=== PATIENT | female | born 1970 | race Caucasian/White ===

== ENCOUNTER → 2016-08-07 | Outpatient (CLI) | payer MEDICAID | LOC: FCPNEURO 20:00 | PROVIDERS: ATTEND Student in an Organized Health Care Education/Training Program | DX: G47.33 Obstructive sleep apnea (adult) (pediatric) (principal) ==

== ENCOUNTER → 2016-08-24 | Outpatient (CLI) | payer MEDICAID ==
--- NOTE | 2016-08-24 16:55 | MA ---
Screening Digital Mammogram, With Tomosynthesis and iCAD Indication: Routine screening. Technique: Standard digital CC projections were obtained. Digital breast tomosynthesis was performe d in the MLO projection, with reconstruction at 1.0-mm slice thickness. Composite MLO views were rec onstructed. This examination was processed by the iCAD computer-aided detection system. Comparison: August 2015, April 2014, and January 2013. Breast Density: Type B. Findings: CAD was reviewed. No suspicious microcalcifications, mass, or architectural distortion. Impression: Negative mammogram. BI-RADS: 1 - Negative. Recommendation: Routine screening is recommended in one year. [facility] will send a result letter to the patient. Negative mammography should not preclude additional workup of a clinically suspicious finding. The patient's information is entered into a reminder system with a target due date for her next mammo gram.
== END ==
LOC: FIMAGING 13:43
DX: Z12.31 Encounter for screening mammogram for malignant neoplasm of breast (principal)
CPT/HCPCS: G0202

== ENCOUNTER 2017-02-24 09:24 | Day surgery (SDC) | payer MEDICAID ==
[2017-02-24] MEDS ORDERED: LIDOCAINE 1% 2 ML INJ ONE (09:36)
[2017-02-24] MEDS ORDERED: LIDOCAINE 1% 2 ML INJ ID PRN (09:52)
[2017-02-24] MEDS ORDERED: NS 500 ML IV SCH (10:00)
[2017-02-24] MEDS ORDERED: MIDAZOLAM 2 MG/2 ML VIAL ONE (10:50)
[2017-02-24] MEDS ORDERED: fentaNYL 100 MCG/2 ML INJ ONE (10:51)
--- NOTE | 2017-02-24 10:57 | PDGENHP ---
History and Physical - Chief Complaint diarrhea, abdominal pain, family hx of colon cancer and polyps - History of Present Illness 46 year old with mild asthma and [place] with family hx of colon polyps (brother) and colon cancer (grandmother). Recent worsening of stools and development of diarrhea with mild pain and weight loss. History Information - Allergies/Home Medication List Allergies/Adverse Reactions: amoxicillin Allergy (Unverified 10/30/16 12:45) flouroquinine antibiotics Allergy (Uncoded 10/30/16 12:45) Home Medications: Herbals/Supplements -Info Only 02/17/17 [Last Taken 02/23/17] Singulair 02/17/17 [Last Taken 3 Days Ago] I have personally reviewed and updated: family history, medical history, social history, surgical history - Past Medical History asthma - Surgical History Reports: no pertinent surgical hx - Family History Positive for: cancer - Social History Smoking Status: Never smoked Alcohol Use: Rarely Drug Use: None Review of Systems ROS: 10pt was reviewed & negative except for what was stated in HPI & below Physical Exam Temp Pulse Resp BP Pulse Ox 36.9 C 66 18 122/74 H 98 02/24/17 09:55 02/24/17 09:55 02/24/17 09:55 02/24/17 09:55 02/24/17 09:55 Constitutional: no apparent distress, appears nourished Eyes: PERRL Ears, Nose, Mouth, Throat: moist mucous membranes Cardiovascular: regular rate and rhythym, no murmur, rub, or gallop, systolic murmur Respiratory: no respiratory distress Gastrointestinal: normoactive bowel sounds Skin: warm, normal color Neurologic: AAOx3 Psychiatric: interacting appropriately, not anxious Assessment & Plan Assessment: diarrhea and family hx of colon polyps/cancer Plan: colonoscopy
--- NOTE | 2017-02-24 11:58 | SUROPNOTE ---
[facility] Operative Report - Surgery COLONOSCOPY: Indication: diarrhea, weight loss, family hx of colon polyps, family hx of colon cancer Complications: none acutely Prep Quality: fair, lesions under 6mm could have been missed Extend of exam: distal ascending colon Difficulty of exam: difficult, despite moving patient on bed nad additional abdominal pressure, unable to advance scope to cecum Total service time: 58 minutes EBL: none Medications: 8mg versed, 200 mcg fentanyl Findings: 1. normal colon, to the limits of the exam and prep - bx'd to r/o microscopic colitis 2. 8mm sigmoid polyp - removed with hot snare cautery. Recommendations: 1. await path results 2. given incomplete screening exam - recommend CT colonography 3. follow-up with PMD as previously scheduled 4. follow-up colonoscopy pending path result and imaging result
[2017-02-24 12:07] VITALS: RESP 15
--- NOTE | 2017-02-24 12:11 | PDPROPOC ---
Sedation Plan of Care Sedation Plan of Care: vital signs stable, mental status noted, patient educated of risks, benefits, alternatives, patient can tolerate sedation ASA Classification: ASA 2 Planned drugs: versed, fentanyl Mallampati Score: Class 1
[2017-02-24 12:47] VITALS: BP 97/69; PULSE 72; TEMP 97.5; O2SAT 94
== END 2017-02-24 12:40 | disposition home or self-care (01) ==
LOC: FSGY 09:24
PROVIDERS: ATTEND Internal Medicine Gastroenterology
PROC: 0DBN8ZX Excision of Sigmoid Colon, Via Natural or Artificial Opening Endoscopic, Diagnostic (ICD-10-PCS; principal; 2017-02-24 11:00)
PROC: 0DBE8ZX Excision of Large Intestine, Via Natural or Artificial Opening Endoscopic, Diagnostic (ICD-10-PCS; principal; 2017-02-24 11:00)
DX: D12.5 Benign neoplasm of sigmoid colon (principal); Z53.09 Procedure and treatment not carried out because of other contraindication; Z86.010 Personal history of colon polyps; Z83.71 Family history of colonic polyps; J45.909 Unspecified asthma, uncomplicated; G47.33 Obstructive sleep apnea (adult) (pediatric)
CPT/HCPCS: J2250; J3010

== ENCOUNTER → 2017-02-26 | Outpatient (CLI) | payer MEDICAID | LOC: FIMAGING 14:46 | PROVIDERS: ATTEND Family Medicine | DX: M51.16 Intervertebral disc disorders with radiculopathy, lumbar region (principal); D25.9 Leiomyoma of uterus, unspecified ==

== ENCOUNTER → 2017-03-12 | Outpatient (CLI) | payer MEDICAID | LOC: FIMAGING 08:00 | PROVIDERS: ATTEND Internal Medicine Gastroenterology | DX: K59.1 Functional diarrhea (principal) ==

== ENCOUNTER → 2017-05-13 | Outpatient (CLI) | payer MEDICAID | LOC: FIMAGING 11:46 | PROVIDERS: ATTEND Family Medicine | DX: S76.011A Strain of muscle, fascia and tendon of right hip, initial encounter (principal); S73.191A Other sprain of right hip, initial encounter; D25.9 Leiomyoma of uterus, unspecified ==

== ENCOUNTER → 2017-05-17 | Outpatient (CLI) | payer MEDICAID ==
[~2017-05-17] MED LIST: GADOBUTROL 10 ML VIAL IVP ONE
== END ==
LOC: FIMAGING 10:13
PROVIDERS: ATTEND Radiology Diagnostic Radiology
DX: R19.09 Other intra-abdominal and pelvic swelling, mass and lump (principal)
CPT/HCPCS: A9585

== ENCOUNTER → 2017-07-14 | Outpatient (CLI) | payer MEDICAID | LOC: BMCIMAGING 15:05 | PROVIDERS: ATTEND Obstetrics & Gynecology | DX: D25.1 Intramural leiomyoma of uterus (principal) ==

== ENCOUNTER → 2017-09-21 | Outpatient (CLI) | payer MEDICAID | LOC: FIMAGING 10:43 | PROVIDERS: ATTEND Family Medicine | DX: Z12.31 Encounter for screening mammogram for malignant neoplasm of breast (principal) ==

== ENCOUNTER → 2017-09-28 | Outpatient (CLI) | payer MEDICAID | LOC: FIMAGING 07:56 | PROVIDERS: ATTEND Radiology Diagnostic Radiology | DX: I83.92 Asymptomatic varicose veins of left lower extremity (principal); Z98.890 Other specified postprocedural states ==

== ENCOUNTER → 2017-11-08 | Day surgery (SDC) | payer MEDICAID ==
[~2017-11-08] MED LIST changes: -GADOBUTROL 10 ML VIAL IVP ONE; +SODIUM TETRADECYL SULFATE 3% 2 ML VIAL IV ONE
== END | disposition home or self-care (01) ==
LOC: FIMAGING 12:37
PROVIDERS: ATTEND Radiology Diagnostic Radiology
DX: I83.812 Varicose veins of left lower extremity with pain (principal); Z98.890 Other specified postprocedural states

== ENCOUNTER → 2017-12-17 | Outpatient (CLI) | payer MEDICAID | LOC: FIMAGING 18:39 | DX: M50.223 Other cervical disc displacement at C6-C7 level (principal); M50.31 Other cervical disc degeneration, high cervical region; M50.321 Other cervical disc degeneration at C4-C5 level; M48.02 Spinal stenosis, cervical region ==